=== PATIENT | female | born 1980 | race Caucasian/White ===

== ENCOUNTER 2019-07-02 11:08 | Emergency (ER) | payer OTHER, SELFPAY ==
--- OUTSIDE RECORDS SUMMARY | 2019-07-02 11:39 | XMS REPORT ---
:1980 [facility] Address [address] [place] [address] Dr. Rose [address] [place] [id number] Care Team Providers Name Role Phone Unavailable Unavailable Unavailable Payers Payer Name Policy Type Policy Number Effective Date Expiration Date Problems This patient has no known problems. Allergies, Adverse Reactions, Alerts Allergy Name Allergy Status Severity Reaction(s) Onset Inactive Treating Comments Type Date Date Clinician codeine DA Active U 2019-04 00:00:0 0 cephalexin DA Active LA 2019-04 00:00:0 0 Medications This patient has no known medications.
--- NOTE | 2019-07-02 13:00 | RAD REPORT ---
EXAM DESCRIPTION: RAD - Knee Right 3 View - 07/02/2019 12:45 pm CLINICAL HISTORY: Right knee pain FINDINGS: No fracture or dislocation is seen. Edema is present within the subcutaneous tissues. Mild osteoarthritis involves the lateral compartment
--- NOTE | 2019-07-02 14:04 | EDPHYS ---
Physician Documentation [facility] Name: Dinora Mcfarland Age: 38 yrs Sex: Female : 1980 Arrival Date: 07/02/2019 Time: 11:18 Bed 2 Private MD: ED Physician Nehemiah Campos HPI: 07/02 12:12 This 38 yrs old Female presents to ER via Wheelchair with complaints of Knee jr8 Pain. 12:12 The patient presents with pain. The complaints affect the right knee. Context: resulted jr8 from an unknown cause. Onset: The symptoms/episode began/occurred acutely, today. Modifying factors: The symptoms are alleviated by nothing. the symptoms are aggravated by movement, weight bearing, bending knee. Associated signs and symptoms: The patient has no apparent associated signs or symptoms. Severity of symptoms: At their worst the symptoms were mild, in the emergency department the symptoms are unchanged. The patient has not experienced similar symptoms in the past. The patient has not recently seen a physician. Stated that knee started to swell and become painful. Unknown cause . 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 - Coronavirus screen:: The patient has NOT traveled to [place] in the past 14 days. Proceed with normal triage process as indicated. - Social history:: Smoking status: Patient reports the use of cigarette tobacco products, / PPD. - Ebola Screening: : No symptoms or risks identified at this time. ROS: 12:12 Eyes: Negative for injury, pain, redness, and discharge, ENT: Negative for injury, jr8 pain, and discharge, Neck: Negative for injury, pain, and swelling, Cardiovascular: Negative for chest pain, palpitations, and edema, Respiratory: Negative for shortness of breath, cough, wheezing, and pleuritic chest pain, Abdomen/GI: Negative for abdominal pain, nausea, vomiting, diarrhea, and constipation, Back: Negative for injury and pain, Skin: Negative for injury, rash, and discoloration, Neuro: Negative for headache, weakness, numbness, tingling, and seizure. 12:12 MS/extremity: Positive for decreased range of motion, pain, swelling, tenderness, of the right knee. Exam: 12:12 Eyes: Pupils equal round and reactive to light, extra-ocular motions intact. Lids and jr8 lashes normal. Conjunctiva and sclera are non-icteric and not injected. Cornea within normal limits. Periorbital areas with no swelling, redness, or edema. ENT: Nares patent. No nasal discharge, no septal abnormalities noted. Tympanic membranes are normal and external auditory canals are clear. Oropharynx with no redness, swelling, or masses, exudates, or evidence of obstruction, uvula midline. Mucous membranes moist. Neck: Trachea midline, no thyromegaly or masses palpated, and no cervical lymphadenopathy. Supple, full range of motion without nuchal rigidity, or vertebral point tenderness. No Meningismus. Cardiovascular: Regular rate and rhythm with a normal S1 and S2. No gallops, murmurs, or rubs. Normal PMI, no JVD. No pulse deficits. Respiratory: Lungs have equal breath sounds bilaterally, clear to auscultation and percussion. No rales, rhonchi or wheezes noted. No increased work of breathing, no retractions or nasal flaring. Abdomen/GI: Soft, non-tender, with normal bowel sounds. No distension or tympany. No guarding or rebound. No evidence of tenderness throughout. Back: No spinal tenderness. No costovertebral tenderness. Full range of motion. Skin: Warm, dry with normal turgor. Normal color with no rashes, no lesions, and no evidence of cellulitis. Neuro: Awake and alert, GCS 15, oriented to person, place, time, and situation. Cranial nerves II-XII grossly intact. Motor strength 5/5 in all extremities. Sensory grossly intact. Cerebellar exam normal. Normal gait. 12:12 Musculoskeletal/extremity: Extremities: grossly normal except: noted in the right knee: mild effusion to right knee with tenderness to joint line and infrapatellar region. No trauma noted , ROM: intact in all extremities, full active range of motion, full passive range of motion, limited active range of motion due to pain, in the right leg, limited passive range of motion due to pain, in the right leg, Circulation is intact in all extremities. Pulses: noted to be 2+ in the right radial artery, right dorsalis pedis artery, left radial artery and left dorsalis pedis artery, Sensation intact. Vital Signs: 11:44 BP 151 / 109; Pulse 78; Resp 17; Temp 97.6(TE); Pulse Ox 99% ; Pain 8/10; ll1 MDM: 11:38 Patient medically screened. jr8 12:46 Data reviewed: vital signs, nurses notes, radiologic studies, plain films. Data jr8 interpreted: Pulse oximetry: on room air is 99 %. Interpretation: normal. Counseling: I had a detailed discussion with the patient and/or guardian regarding: the historical points, exam findings, and any diagnostic results supporting the discharge/admit diagnosis, radiology results, the need for outpatient follow up, a orthopedic surgeon, to return to the emergency department if symptoms worsen or persist or if there are any questions or concerns that arise at home. 07/02 11:40 Order name: XRAY Knee RIGHT 3 view jr8 Administered Medications: No medications were administered Disposition: 14:02 Co-signature as Attending Physician, Nehemiah Campos MD I agree with the assessment and kdr plan of care. Disposition: 07/02/19 12:45 Discharged to Home. Impression: Pain in right knee. - Condition is Stable. - Discharge Instructions: Joint Pain, Arthritis, Knee Pain. - Prescriptions for meloxicam 15 mg Oral tablet - take 1 tablet by ORAL route once daily As needed; 20 tablet. - Work release form, Medication Reconciliation Form, Thank You Letter, Antibiotic Education, Prescription Opioid Use form. - Follow up: Kev Shepherd MD; When: 5 - 6 days; Reason: Recheck today's complaints, Continuance of care, Re-evaluation by your physician. - Problem is new. - Symptoms have improved. Signatures: Dispatcher [employer] EDMS Nehemiah Campos MD MD kdr Roszak, Josh, PA PA jr8 Colleen Clemons RN RN Joel Larry RN RN ll1 Corrections: (The following items were deleted from the chart) 13:34 12:45 07/02/2019 12:45 Discharged to Home. Impression: Pain in right knee. Condition is hb Stable. Forms are Medication Reconciliation Form, Thank You Letter, Antibiotic Education, Prescription Opioid Use. Follow up: Kev Shepherd; When: 5 - 6 days; Reason: Recheck today's complaints, Continuance of care, Re-evaluation by your physician. Problem is new. Symptoms have improved. jr8
--- NOTE | 2019-07-02 14:04 | ER ---
Nurse's Notes [facility] Name: Dinora Mcfarland Age: 38 yrs Sex: Female : 1980 Arrival Date: 07/02/2019 Time: 11:18 Bed 2 Private MD: Diagnosis: Pain in right knee Presentation: 07/02 11:35 Presenting complaint: Patient states: Right knee pain for 1 week getting progressively ll1 worse. No known trauma or injury. Transition of care: patient was not received from another setting of care. Onset of symptoms was June 25, 2019. Risk Assessment: Do you want to hurt yourself or someone else? Patient reports no desire to harm self or others. Initial Sepsis Screen: Does the patient meet any 2 criteria? No. Patient's initial sepsis screen is negative. Does the patient have a suspected source of infection? No. Patient's initial sepsis screen is negative. Care prior to arrival: Medication(s) given: Motrin. Activity prior to arrival: None. 11:35 Method Of Arrival: Wheelchair ll1 11:35 Acuity: MANUEL 4 ll1 Triage Assessment: 11:42 General: Appears uncomfortable, Behavior is calm, cooperative. Pain: Complains of pain ll1 in right knee Pain currently is 8 out of 10 on a pain scale. at worst was 9 out of 10 on a pain scale. Neuro: No deficits noted. Cardiovascular: No deficits noted. Respiratory: No deficits noted. Musculoskeletal: Reports pain in right knee since 1 week. 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 - Coronavirus screen:: The patient has NOT traveled to [place] in the past 14 days. Proceed with normal triage process as indicated. - Social history:: Smoking status: Patient reports the use of cigarette tobacco products, 1/4 PPD. - Ebola Screening: : No symptoms or risks identified at this time. Screenin:47 Abuse screen: Denies threats or abuse. Nutritional screening: No deficits noted. ll1 Tuberculosis screening: No symptoms or risk factors identified. Fall Risk None identified. Total George Fall Scale indicates No Risk (0-24 pts). Assessment: 11:52 General: Appears uncomfortable, Behavior is calm, cooperative. General: See triage note ll1 for further details. PMS intact RLE.. Musculoskeletal: Circulation, motion, and sensation intact. Capillary refill < 3 seconds, Tenderness present in right knee. Vital Signs: 11:44 BP 151 / 109; Pulse 78; Resp 17; Temp 97.6(TE); Pulse Ox 99% ; Pain 8/10; ll1 ED Course: 11:18 Patient arrived in ED. fj1 11:30 [facility]ylan Garnica PA [facility]. jr8 11:30 Nehemiah Campos MD is Attending Physician. jr8 11:35 Joel Angela, PAOLA is Primary Nurse. ll1 11:38 Triage completed. ll1 11:46 Arm band placed on left wrist. ll1 11:47 Patient has correct armband on for positive identification. Allergy band placed. Bed in ll1 low position. Call light in reach. Side rails up X 1. Cardiac monitoring not applicable on this patient. 11:51 Warm blanket given. Pillow given. RLE elevated on pillow, ice pack in place. ll1 12:44 Kev Shepherd MD is Referral Physician. [facility] 13:33 No provider procedures requiring assistance completed. Patient did not have IV access hb during this emergency room visit. Administered Medications: No medications were administered Outcome: 12:45 Discharge ordered by . [facility] 13:33 Discharged to home via wheelchair. hb 13:33 Condition: stable 13:33 Discharge instructions given to patient, Instructed on discharge instructions, follow up and referral plans. medication usage, Demonstrated understanding of instructions, follow-up care, medications, Prescriptions given X 1. 13:34 Patient left the ED. hb Signatures: Rylan Garnica PA PA jr8 Colleen Clemons RN RN hb James, Frank fj1 Joel Angela, PAOLA RN ll1
[2019-07-02 14:32] VITALS: BP 151/109; TEMP 97.6; O2SAT 99
== END 2019-07-02 13:34 | disposition home or self-care (01) ==
LOC: ER 11:08
DX: M25.561 Pain in right knee (principal); F17.210 Nicotine dependence, cigarettes, uncomplicated; Z88.0 Allergy status to penicillin; Z88.5 Allergy status to narcotic agent; Z88.8 Allergy status to other drugs, medicaments and biological substances; Z91.018 Allergy to other foods
CPT/HCPCS: 99282